=== PATIENT | female | born 1960 | race Caucasian/White ===

== ENCOUNTER → 2016-09-12 | Outpatient (CLI) | payer BC | LOC: GMAJ 14:23 | PROVIDERS: ATTEND Family Medicine | DX: N39.0 Urinary tract infection, site not specified (principal) ==

== ENCOUNTER → 2018-02-18 | Outpatient (CLI) | payer BC | LOC: GMAJ 12:39 | PROVIDERS: ATTEND Family Medicine | DX: Z00.00 Encounter for general adult medical examination without abnormal findings (principal) ==

== ENCOUNTER → 2018-07-16 | Outpatient (CLI) | payer BC | LOC: GMAJ 14:19 | PROVIDERS: ATTEND Family Medicine | DX: M25.50 Pain in unspecified joint (principal) ==